=== PATIENT | female | born 1930 | race Caucasian/White ===

== ENCOUNTER → 2016-05-21 | Outpatient (CLI) | payer MEDICARE, OTHER ==
[~2016-05-21] MED LIST: CENTRUM SILVER1 EAC4 PO; DONEPEZIL HCL5 MG PO; HYDROMORPHONE HC4 MG PO; LORTAB 10-3251 EACH PO; MIRALAX255 GM PO; TRAMADOL HCL50 MG PO; TYLENOL EXTRA500 MG PO
== END | disposition home or self-care (01) ==
LOC: CDC 08:26
DX: I45.9 Conduction disorder, unspecified (principal); K46.9 Unspecified abdominal hernia without obstruction or gangrene
CPT/HCPCS: 93000

== ENCOUNTER 2016-05-28 10:43 | Day surgery (SDC) | payer OTHER ==
[~2016-05-28] VITALS: Ht 170.2 cm; Wt 62.6 kg
[2016-05-28 11:31] VITALS: BP 176/75
[2016-05-28 17:30] VITALS: BP 164/72
[2016-05-28 19:30] VITALS: BP 151/66
[2016-05-28 23:25] VITALS: BP 144/65
[2016-05-29 04:36] VITALS: BP 168/68
[2016-05-29 08:15] VITALS: BP 157/69
[2016-05-29 12:45] VITALS: BP 156/70
[2016-05-29 14:30] VITALS: BP 130/60
== END 2016-05-29 16:50 | disposition home or self-care (01) ==
LOC: SDC 10:43 → 2EASTP 14:45 → 2SOUTH 14:45 → 2EASTP 17:05
PROC: 0YQ50ZZ Repair Right Inguinal Region, Open Approach (ICD-10-PCS; principal; 2016-05-28)
DX: K40.90 Unilateral inguinal hernia, without obstruction or gangrene, not specified as recurrent (principal); D17.79 Benign lipomatous neoplasm of other sites; M35.00 Sjogren syndrome, unspecified; F01.50 Vascular dementia, unspecified severity, without behavioral disturbance, psychotic disturbance, mood disturbance, and anxiety; R01.1 Cardiac murmur, unspecified
CPT/HCPCS: 71010; 88302; 93005; C1781; G0378; G8987 GO CJ; G8988 CI; G8989 GO CI; J0690; J1170; J1650; J2405; J3010; J3480; J7120

== ENCOUNTER 2016-08-15 20:20 | Inpatient (IN) | payer OTHER ==
[~2016-08-15] VITALS: Ht 170.2 cm; Wt 61.0 kg
[2016-08-15 21:03] LABS: EOSINOPHIL (%) 0.1 % (0-5); HEMATOCRIT 29.4 % (36.0-46.0); IMMATURE GRANULOCYTE (%) 0.6 % (0.0-0.7); IMMATURE GRANULOCYTE COUNT 0.1 K/uL; INSTRUMENT ABS NEUTROPHIL CT 9.1 K/uL; LYMPHOCYTE COUNT 1.8 K/uL (1.0-2.8); MCH 29.7 PG (29.0-34.0); MCV 89.9 FL (83-99); MEAN PLAT.VOLUME 9.5 uM^3 (9.5-12.4); MONOCYTE (%) 8.6 % (3-12); NEUTROPHIL (%) 75.5 % (45-76); NEUTROPHIL COUNT 9.1 K/uL (1.8-6.4); PLATELET COUNT 498 K/uL (156-360); RBC DIS.WIDTH-CV 14.1 % (11.8-14.6); RBC DIS.WIDTH-SD 46.4 % (39-53); RED BLOOD COUNT 3.27 M/uL (3.80-5.20); WHITE BLOOD COUNT 12.1 K/uL (4.1-10.2)
[2016-08-15 21:16] LABS: CHLORIDE 105 mEq/L (99-109); INTER. NORMALIZED RATIO 1.1; POTASSIUM 4.6 mEq/L (3.7-5.4); PROTHROMBIN TIME 11.3 (9.2-11.2); PTT 31.7 (25-32); SODIUM 141 mEq/L (136-147)
[2016-08-15 21:18] LABS: GLUCOSE 114 mg/dL (70-99)
[2016-08-15 21:19] LABS: ANION GAP 10 MEQ/L (2-14)
[2016-08-15 21:22] LABS: GFR ESTIMATE (CALCULATED) 41 mL/min/
[2016-08-15 21:23] LABS: UREA NITROGEN (BUN) 41 mg/dL (9-23)
[2016-08-15 21:30] LABS: TROP-I INTERPRETATION NEGATIVE; TROPONIN-I 0.02 ng/mL (0.0-0.30)
[2016-08-15 22:06] LABS: ADD MIUA? YES; BILIRUBIN NEGATIVE; BLOOD SMALL; COLOR AMBER ((YELLOW)); GLUCOSE (STRIP) NEGATIVE; KETONES NEGATIVE; LEUKOCYTES TRACE; NITRITE NEGATIVE; PROTEIN (STRIP) NEGATIVE; SPECIFIC GRAVITY 1.016 (1.000-1.030); UROBILINOGEN 0.2 MG/DL (0.2-1.0)
[2016-08-15 22:45] LABS: BACTERIA 3+ /HPF; EPITHELIAL CELLS NONE SEEN /HPF; HYALINE CASTS 0-5 /LPF; MUCUS NONE SEEN /LPF; RED BLOOD CELLS 0-5 /HPF (0-5); UCUL ADDED? NO; WHITE BLOOD CELLS 0-5 /HPF (0-5)
[2016-08-16 03:46] VITALS: BP 167/67
[2016-08-16 05:30] LABS: EOSINOPHIL (%) 0 % (0-5); IMMATURE GRANULOCYTE (%) 0.7 % (0.0-0.7); IMMATURE GRANULOCYTE COUNT 0.1 K/uL; INSTRUMENT ABS NEUTROPHIL CT 10.5 K/uL; LYMPHOCYTE COUNT 0.8 K/uL (1.0-2.8); MCH 29.5 PG (29.0-34.0); MCHC 32.6 G/DL (30.0-36.0); MCV 90.6 FL (83-99); MEAN PLAT.VOLUME 9.4 uM^3 (9.5-12.4); MONOCYTE (%) 8.4 % (3-12); NEUTROPHIL (%) 84.3 % (45-76); NEUTROPHIL COUNT 10.5 K/uL (1.8-6.4); PLATELET COUNT 499 K/uL (156-360); RBC DIS.WIDTH-CV 14.1 % (11.8-14.6); RBC DIS.WIDTH-SD 47.3 % (39-53); RED BLOOD COUNT 3.42 M/uL (3.80-5.20); WHITE BLOOD COUNT 12.4 K/uL (4.1-10.2)
[2016-08-16 05:54] LABS: ANION GAP 9 MEQ/L (2-14); CHLORIDE 104 MEQ/L (99-109); GFR ESTIMATE (CALCULATED) 50 mL/min/; GLUCOSE 110 mg/dL (70-99); POTASSIUM 4.4 MEQ/L (3.7-5.4); SAMPLE HEMOLYSIS CHECK 0; SAMPLE ICTERIC CHECK 0; SAMPLE LIPEMIA CHECK 0; SODIUM 140 MEQ/L (136-147); UREA NITROGEN (BUN) 32 mg/dL (9-23)
[2016-08-16 07:23] VITALS: BP 151/74
[2016-08-16 09:15] LABS: INTERNAL CONTROL VALID? YES
[2016-08-16 10:59] VITALS: BP 173/92
[2016-08-16 15:39] VITALS: BP 155/70
[2016-08-16 19:42] VITALS: BP 186/79
[2016-08-17] VITALS (7 sets, daily range): BP systolic 139–160; BP diastolic 60–75
[2016-08-17 06:24] LABS: HEMATOCRIT 28.3 % (36.0-46.0); MCH 29.2 PG (29.0-34.0); MCHC 32.9 G/DL (30.0-36.0); MEAN PLAT.VOLUME 9.8 uM^3 (9.5-12.4); PLATELET COUNT 519 K/uL (156-360); RBC DIS.WIDTH-CV 13.9 % (11.8-14.6); RBC DIS.WIDTH-SD 45.1 % (39-53); RED BLOOD COUNT 3.18 M/uL (3.80-5.20)
[2016-08-17 06:54] LABS: ANION GAP 12 MEQ/L (2-14); CHLORIDE 105 MEQ/L (99-109); GFR ESTIMATE (CALCULATED) 50 mL/min/; GLUCOSE 85 mg/dL (70-99); POTASSIUM 4.2 MEQ/L (3.7-5.4); SAMPLE HEMOLYSIS CHECK 0; SAMPLE ICTERIC CHECK 0; SAMPLE LIPEMIA CHECK 0; SODIUM 142 MEQ/L (136-147); UREA NITROGEN (BUN) 21 mg/dL (9-23)
[2016-08-18 06:35] LABS: HEMATOCRIT 30.7 % (36.0-46.0); MCH 28.7 PG (29.0-34.0); MCHC 32.6 G/DL (30.0-36.0); MEAN PLAT.VOLUME 9.3 uM^3 (9.5-12.4); PLATELET COUNT 575 K/uL (156-360); RBC DIS.WIDTH-CV 13.8 % (11.8-14.6); RBC DIS.WIDTH-SD 44.7 % (39-53); RED BLOOD COUNT 3.49 M/uL (3.80-5.20); WHITE BLOOD COUNT 12.2 K/uL (4.1-10.2)
[2016-08-18 07:57] VITALS: BP 187/79
[2016-08-18 11:29] VITALS: BP 135/61
[2016-08-18 15:58] VITALS: BP 132/65
[2016-08-18 20:08] VITALS: BP 182/89
[2016-08-18 21:00] VITALS: BP 164/64
[2016-08-18 23:53] VITALS: BP 136/63
[2016-08-19 07:31] VITALS: BP 164/81
[2016-08-19 07:47] LABS: HEMATOCRIT 29.9 % (36.0-46.0); MCH 28.2 PG (29.0-34.0); MCHC 32.1 G/DL (30.0-36.0); MCV 87.7 FL (83-99); MEAN PLAT.VOLUME 9.9 uM^3 (9.5-12.4); PLATELET COUNT 531 K/uL (156-360); RBC DIS.WIDTH-SD 45.1 % (39-53); RED BLOOD COUNT 3.41 M/uL (3.80-5.20)
[2016-08-19 07:48] LABS: WHITE BLOOD COUNT 8.5 K/uL (4.1-10.2)
[2016-08-19 11:12] VITALS: BP 162/83
[2016-08-19 15:49] VITALS: BP 161/77
[2016-08-19 19:55] VITALS: BP 155/68
[2016-08-20 00:02] VITALS: BP 174/72
[2016-08-20 07:57] VITALS: BP 190/77
[2016-08-20 08:24] VITALS: BP 174/74
[2016-08-20 11:47] VITALS: BP 142/65
[2016-08-20 15:43] VITALS: BP 159/64
[2016-08-20 20:00] VITALS: BP 140/62
[2016-08-21] VITALS: BP 149/72
[2016-08-21 07:58] VITALS: BP 194/79
[2016-08-21 08:05] VITALS: BP 155/88
[2016-08-21 08:41] LABS: BASOPHIL COUNT 0.1 K/uL (0-0.1); EOSINOPHIL (%) 0.1 % (0-5); HEMATOCRIT 31.2 % (36.0-46.0); IMMATURE GRANULOCYTE (%) 0.5 % (0.0-0.7); INSTRUMENT ABS NEUTROPHIL CT 5.9 K/uL; LYMPHOCYTE COUNT 1.6 K/uL (1.0-2.8); MCH 28.3 PG (29.0-34.0); MCHC 32.1 G/DL (30.0-36.0); MCV 88.4 FL (83-99); MEAN PLAT.VOLUME 9.7 uM^3 (9.5-12.4); MONOCYTE (%) 9.8 % (3-12); MONOCYTE COUNT 0.8 K/uL (0-0.8); NEUTROPHIL (%) 70.1 % (45-76); NEUTROPHIL COUNT 5.9 K/uL (1.8-6.4); PLATELET COUNT 495 K/uL (156-360); RBC DIS.WIDTH-CV 14.3 % (11.8-14.6); RBC DIS.WIDTH-SD 45.8 % (39-53); RED BLOOD COUNT 3.53 M/uL (3.80-5.20); WHITE BLOOD COUNT 8.4 K/uL (4.1-10.2)
[2016-08-21 09:11] LABS: ANION GAP 10 MEQ/L (2-14); CHLORIDE 106 MEQ/L (99-109); GFR ESTIMATE (CALCULATED) > 59 mL/min/; GLUCOSE 84 mg/dL (70-99); POTASSIUM 4.2 MEQ/L (3.7-5.4); SAMPLE HEMOLYSIS CHECK 0; SAMPLE ICTERIC CHECK 0; SAMPLE LIPEMIA CHECK 0; SODIUM 142 MEQ/L (136-147); UREA NITROGEN (BUN) 15 mg/dL (9-23)
[2016-08-21 10:57] VITALS: BP 175/79
[2016-08-21 15:54] VITALS: BP 144/68
[2016-08-21] MEDS ORDERED: ALBUTEROL2.5 MG/0.5 AEROSOL (16:27)
[2016-08-21] MEDS ORDERED: LOPRESSOR25 MG PO (16:27)
[2016-08-21] MEDS ORDERED: AMLODIPINE BESYL5 MG PO (16:27)
[2016-08-21] MEDS ORDERED: AMOX TR-K CLV1 EAC4 PO (16:27)
[2016-08-21] MEDS ORDERED: GABAPENTIN100 MG PO (16:28)
[2016-08-21] MEDS ORDERED: ENDOCET 5-3251 EACH PO (16:29)
[2016-08-21] MEDS ORDERED: GUAIFENESI100 MG/5 M PO (16:29)
== END 2016-08-21 21:20 | DRG 917 ==
LOC: EME → EDBD 20:20 → EME 20:20 → EDOF 08-16 02:01 → 5SOUTH 08-16 02:01
PROVIDERS: Emergency Medicine; Hospitalist; Internal Medicine
DX: T40.601A Poisoning by unspecified narcotics, accidental (unintentional), initial encounter (principal); G93.41 Metabolic encephalopathy; G30.9 Alzheimer's disease, unspecified; F02.80 Dementia in other diseases classified elsewhere, unspecified severity, without behavioral disturbance, psychotic disturbance, mood disturbance, and anxiety; M79.604 Pain in right leg; I47.1 Supraventricular tachycardia; J18.9 Pneumonia, unspecified organism; I48.91 Unspecified atrial fibrillation; R68.2 Dry mouth, unspecified; G62.9 Polyneuropathy, unspecified; K59.00 Constipation, unspecified; I12.9 Hypertensive chronic kidney disease with stage 1 through stage 4 chronic kidney disease, or unspecified chronic kidney disease; Y92.009 Unspecified place in unspecified non-institutional (private) residence as the place of occurrence of the external cause; N18.3 Chronic kidney disease, stage 3 (moderate); Z88.8 Allergy status to other drugs, medicaments and biological substances; Z88.2 Allergy status to sulfonamides; Z98.890 Other specified postprocedural states
CPT/HCPCS: 70450; 71010; 80048; 81003; 82607; 83605; 83655; 83735; 84443; 84484; 85025; 85027; 85610; 85730; 87040; 87070; 87205; 87449; 93005; 93306; 93970; 95819; 96125 GN; 97530 GP; 97532 GN; 99202; 99281; 99285; J0456; J1630; J1644; J1956; J2543; J7030; J7050

== ENCOUNTER 2016-11-06 04:33 | Emergency (ER) | payer OTHER ==
[~2016-11-06] VITALS: Ht 167.6 cm; Wt 61.7 kg
[~2016-11-06 04:33] MED LIST changes: +ALBUTEROL2.5 MG/0.5 AEROSOL; +AMLODIPINE BESYL5 MG PO; +AMOX TR-K CLV1 EAC4 PO; +ENDOCET 5-3251 EACH PO; +GABAPENTIN100 MG PO; +GUAIFENESI100 MG/5 M PO; +LOPRESSOR25 MG PO
[2016-11-06 05:35] VITALS: BP 178/85
== END 2016-11-06 05:36 | disposition home or self-care (01) ==
LOC: EME → EDBD 04:33 → EME 04:33
PROC: 0HQ0XZZ Repair Scalp Skin, External Approach (ICD-10-PCS; principal; 2016-11-06)
DX: S01.01XA Laceration without foreign body of scalp, initial encounter (principal); W01.10XA Fall on same level from slipping, tripping and stumbling with subsequent striking against unspecified object, initial encounter
CPT/HCPCS: 70450; 99281; 99284

== ENCOUNTER 2016-11-24 12:07 | Inpatient (IN) | payer OTHER ==
[~2016-11-24] VITALS: Ht 170.2 cm; Wt 58.0 kg
[2016-11-24 13:43] LABS: HEMATOCRIT 39.8 % (36.0-46.0); MCH 29.9 PG (29.0-34.0); MCHC 32.4 G/DL (30.0-36.0); MCV 92.1 FL (83-99); MEAN PLAT.VOLUME 9.7 uM^3 (9.5-12.4); PLATELET COUNT 319 K/uL (156-360); RBC DIS.WIDTH-SD 50.3 % (39-53); RED BLOOD COUNT 4.32 M/uL (3.80-5.20); WHITE BLOOD COUNT 10.7 K/uL (4.1-10.2)
[2016-11-24 13:46] LABS: PROTHROMBIN TIME 11.3 SEC (10.2-12.9)
[2016-11-24 13:49] LABS: CHLORIDE 102 mEq/L (99-109); POTASSIUM 4.7 mEq/L (3.7-5.4); SODIUM 139 mEq/L (136-147)
[2016-11-24 13:51] LABS: GLUCOSE 115 mg/dL (70-99)
[2016-11-24 13:52] LABS: ANION GAP 10 MEQ/L (2-14)
[2016-11-24 13:55] LABS: GFR ESTIMATE (CALCULATED) 50 mL/min/
[2016-11-24 13:56] LABS: UREA NITROGEN (BUN) 29 mg/dL (9-23)
[2016-11-24] MEDS ORDERED: BUSPAR5 MG PO (16:17)
[2016-11-24] MEDS ORDERED: FEOSOL325 MG PO (16:18)
[2016-11-24] MEDS ORDERED: NEURONTIN100 MG PO (16:19)
[2016-11-24] MEDS ORDERED: ENDOCET 5-3251 EACH PO (16:20)
[2016-11-24] MEDS ORDERED: ZOLOFT50 MG PO (16:21)
[2016-11-24] MEDS ORDERED: MIRALAX17 GM PO (16:21)
[2016-11-24] MEDS ORDERED: MYRBETRIQ25 MG PO (16:22)
[2016-11-24] MEDS ORDERED: TYLENOL REGULA325 MG PO (16:24)
[2016-11-24] MEDS ORDERED: MILK OF MAGN PO (16:25)
[2016-11-24] MEDS ORDERED: ROBAFEN CF SYR118 M1 PO (16:26)
[2016-11-24 17:48] LABS: ADD MIUA? NO; BILIRUBIN NEGATIVE; BLOOD NEGATIVE; COLOR YELLOW ((YELLOW)); GLUCOSE (STRIP) NEGATIVE; KETONES NEGATIVE; LEUKOCYTES NEGATIVE; NITRITE NEGATIVE; PROTEIN (STRIP) NEGATIVE; SPECIFIC GRAVITY 1.017 (1.000-1.030); UCUL ADDED? NO; UROBILINOGEN 0.2 MG/DL (0.2-1.0)
[2016-11-24 18:25] VITALS: BP 191/83
[2016-11-24 19:23] VITALS: BP 162/72
[2016-11-24 23:29] VITALS: BP 169/79
[2016-11-24 23:41] VITALS: BP 169/75
[2016-11-25 02:58] VITALS: BP 180/74
[2016-11-25 06:47] LABS: EOSINOPHIL (%) 3.8 % (0-5); EOSINOPHIL COUNT 0.3 K/uL (0-0.3); HEMATOCRIT 37.4 % (36.0-46.0); IMMATURE GRANULOCYTE (%) 0.4 % (0.0-0.7); INSTRUMENT ABS NEUTROPHIL CT 5.9 K/uL; LYMPHOCYTE COUNT 1.2 K/uL (1.0-2.8); MCH 29.7 PG (29.0-34.0); MCHC 32.4 G/DL (30.0-36.0); MCV 91.7 FL (83-99); MEAN PLAT.VOLUME 9.6 uM^3 (9.5-12.4); MONOCYTE (%) 11.8 % (3-12); NEUTROPHIL (%) 69.6 % (45-76); NEUTROPHIL COUNT 5.9 K/uL (1.8-6.4); PLATELET COUNT 292 K/uL (156-360); RBC DIS.WIDTH-CV 14.7 % (11.8-14.6); RED BLOOD COUNT 4.08 M/uL (3.80-5.20); WHITE BLOOD COUNT 8.4 K/uL (4.1-10.2)
[2016-11-25 07:11] LABS: ALKALINE PHOSPHATASE 68 IU/L (3-129); ANION GAP 6 MEQ/L (2-14); CHLORIDE 100 MEQ/L (99-109); GFR ESTIMATE (CALCULATED) > 59 mL/min/; GLUCOSE 119 mg/dL (70-99); POTASSIUM 4.4 MEQ/L (3.7-5.4); SAMPLE HEMOLYSIS CHECK 0; SAMPLE ICTERIC CHECK 0; SAMPLE LIPEMIA CHECK 0; SODIUM 137 MEQ/L (136-147); TOTAL BILIRUBIN 0.5 MG/DL (0.0-1.0); UREA NITROGEN (BUN) 18 mg/dL (9-23)
[2016-11-25 07:28] VITALS: BP 145/65
[2016-11-25 15:30] VITALS: BP 159/73
[2016-11-26 00:13] VITALS: BP 174/74
[2016-11-26 07:03] LABS: HEMATOCRIT 38.2 % (36.0-46.0); MCH 30.3 PG (29.0-34.0); MCHC 33.2 G/DL (30.0-36.0); MCV 91.2 FL (83-99); PLATELET COUNT 279 K/uL (156-360); RBC DIS.WIDTH-CV 14.6 % (11.8-14.6); RBC DIS.WIDTH-SD 47.9 % (39-53); RED BLOOD COUNT 4.19 M/uL (3.80-5.20); WHITE BLOOD COUNT 9.1 K/uL (4.1-10.2)
[2016-11-26 07:27] VITALS: BP 171/74
[2016-11-26 07:41] LABS: ALKALINE PHOSPHATASE 70 IU/L (3-129); ANION GAP 6 MEQ/L (2-14); CHLORIDE 99 MEQ/L (99-109); GFR ESTIMATE (CALCULATED) > 59 mL/min/; GLUCOSE 125 mg/dL (70-99); POTASSIUM 4.5 MEQ/L (3.7-5.4); SAMPLE HEMOLYSIS CHECK 0; SAMPLE ICTERIC CHECK 0; SAMPLE LIPEMIA CHECK 0; SODIUM 136 MEQ/L (136-147); UREA NITROGEN (BUN) 13 mg/dL (9-23)
[2016-11-26 07:42] LABS: TOTAL BILIRUBIN 0.7 MG/DL (0.0-1.0)
[2016-11-26 11:20] VITALS: BP 153/68
[2016-11-26 19:33] VITALS: BP 114/57
[2016-11-26 23:14] VITALS: BP 148/67
[2016-11-27 03:51] VITALS: BP 158/68
[2016-11-27 07:28] LABS: MCH 29.8 PG (29.0-34.0); MCHC 32.4 G/DL (30.0-36.0); MCV 91.9 FL (83-99); MEAN PLAT.VOLUME 9.9 uM^3 (9.5-12.4); PLATELET COUNT 278 K/uL (156-360); RBC DIS.WIDTH-CV 14.3 % (11.8-14.6); RBC DIS.WIDTH-SD 47.4 % (39-53); RED BLOOD COUNT 3.59 M/uL (3.80-5.20); WHITE BLOOD COUNT 8.8 K/uL (4.1-10.2)
[2016-11-27 07:50] LABS: ALKALINE PHOSPHATASE 52 IU/L (3-129); ANION GAP 9 MEQ/L (2-14); CHLORIDE 102 MEQ/L (99-109); GFR ESTIMATE (CALCULATED) > 59 mL/min/; GLUCOSE 111 mg/dL (70-99); POTASSIUM 4.3 MEQ/L (3.7-5.4); SAMPLE HEMOLYSIS CHECK 0; SAMPLE ICTERIC CHECK 0; SAMPLE LIPEMIA CHECK 0; SODIUM 137 MEQ/L (136-147); TOTAL BILIRUBIN 0.4 MG/DL (0.0-1.0); UREA NITROGEN (BUN) 18 mg/dL (9-23)
[2016-11-27 08:04] VITALS: BP 121/59
[2016-11-27 16:07] VITALS: BP 89/52
[2016-11-27 19:51] VITALS: BP 105/53
[2016-11-27 23:57] VITALS: BP 118/57
[2016-11-28] VITALS (8 sets, daily range): BP systolic 131–172; BP diastolic 59–83
[2016-11-28 06:49] LABS: HEMATOCRIT 27.5 % (36.0-46.0); MCV 93.2 FL (83-99)
[2016-11-28 19:05] LABS: ADD MIUA? YES; BILIRUBIN NEGATIVE; BLOOD SMALL; COLOR STRAW ((YELLOW)); GLUCOSE (STRIP) NEGATIVE; KETONES NEGATIVE; LEUKOCYTES NEGATIVE; NITRITE NEGATIVE; PROTEIN (STRIP) NEGATIVE; UROBILINOGEN 0.2 MG/DL (0.2-1.0)
[2016-11-28 19:13] LABS: BACTERIA RARE /HPF; EPITHELIAL CELLS RARE /HPF; MUCUS TRACE /LPF; RED BLOOD CELLS 0-5 /HPF (0-5); UCUL ADDED? NO; WHITE BLOOD CELLS 0-5 /HPF (0-5)
[2016-11-28 21:02] LABS: HEMATOCRIT 32.9 % (36.0-46.0); MCHC 32.5 G/DL (30.0-36.0); MCV 92.2 FL (83-99); MEAN PLAT.VOLUME 9.5 uM^3 (9.5-12.4); PLATELET COUNT 294 K/uL (156-360); RBC DIS.WIDTH-SD 46.2 % (39-53); RED BLOOD COUNT 3.57 M/uL (3.80-5.20); WHITE BLOOD COUNT 8.5 K/uL (4.1-10.2)
[2016-11-29 00:13] VITALS: BP 149/110
[2016-11-29 04:07] VITALS: BP 173/73
[2016-11-29 12:07] VITALS: BP 161/70
[2016-11-29] MEDS ORDERED: VITAMIN D2000 UNI1 PO (16:07)
[2016-11-29] MEDS ORDERED: LOVENOX40 MG/0.4 SC (16:07)
[2016-11-29] MEDS ORDERED: THERAGRAN1 TABLET PO (16:07)
[2016-11-29] MEDS ORDERED: LOPRESSOR25 MG PO (16:07)
[2016-11-29] MEDS ORDERED: AMLODIPINE BESYL5 MG PO (16:07)
[2016-11-29 16:23] VITALS: BP 139/75
[2016-11-29 23:25] VITALS: BP 188/84
[2016-11-30 08:21] VITALS: BP 167/72
[2016-11-30] MEDS ORDERED: PERCOCET 5/31 TABLET PO (12:16)
== END 2016-11-30 14:54 | DRG 470 ==
LOC: EME 12:07 → 3EAST 16:30 → EDOF 16:30 → ENRESERV 16:46 → 3EAST 18:03
PROVIDERS: Emergency Medicine; Family Medicine; Internal Medicine; Orthopaedic Surgery
PROC: 0SRR0J9 Replacement of Right Hip Joint, Femoral Surface with Synthetic Substitute, Cemented, Open Approach (ICD-10-PCS; principal; 2016-11-26)
PROC: 30233N1 Transfusion of Nonautologous Red Blood Cells into Peripheral Vein, Percutaneous Approach (ICD-10-PCS; 2016-11-28)
DX: S72.001A Fracture of unspecified part of neck of right femur, initial encounter for closed fracture (principal); W01.0XXA Fall on same level from slipping, tripping and stumbling without subsequent striking against object, initial encounter; D62 Acute posthemorrhagic anemia; I12.9 Hypertensive chronic kidney disease with stage 1 through stage 4 chronic kidney disease, or unspecified chronic kidney disease; N18.3 Chronic kidney disease, stage 3 (moderate); G62.9 Polyneuropathy, unspecified; F01.50 Vascular dementia, unspecified severity, without behavioral disturbance, psychotic disturbance, mood disturbance, and anxiety; G30.9 Alzheimer's disease, unspecified; F02.80 Dementia in other diseases classified elsewhere, unspecified severity, without behavioral disturbance, psychotic disturbance, mood disturbance, and anxiety; F41.9 Anxiety disorder, unspecified; F32.9 Major depressive disorder, single episode, unspecified; R29.6 Repeated falls; Z51.5 Encounter for palliative care; Z66 Do not resuscitate; Y92.092 Bedroom in other non-institutional residence as the place of occurrence of the external cause; Z91.81 History of falling; Z75.1 Person awaiting admission to adequate facility elsewhere
CPT/HCPCS: 71010; 73502; 80048; 80053; 81003; 85014; 85018; 85025; 85027; 85610; 85730; 86850; 86900; 86901; 86920; 87086; 93005; 94799; 97530 GP; 99202; 99281; 99285; C1713; J0131; J0690; J0696; J1100; J1650; J2270; J2405; J3010; J7030; J7050; J7120; P9016; S0020

== ENCOUNTER 2017-06-01 14:38 | Emergency (ER) | payer OTHER ==
[~2017-06-01] VITALS: Ht 175.3 cm; Wt 61.0 kg
[~2017-06-01 14:38] MED LIST changes: +BUSPAR5 MG PO; +FEOSOL325 MG PO; +LOVENOX40 MG/0.4 SC; +MILK OF MAGN PO; +MIRALAX17 GM PO; +MYRBETRIQ25 MG PO; +NEURONTIN100 MG PO; +PERCOCET 5/31 TABLET PO; +ROBAFEN CF SYR118 M1 PO; +THERAGRAN1 TABLET PO; +TYLENOL REGULA325 MG PO; +VITAMIN D2000 UNI1 PO; +ZOLOFT50 MG PO
[2017-06-01 16:38] VITALS: BP 182/82
== END 2017-06-01 16:43 ==
LOC: EME 14:38
DX: F03.90 Unspecified dementia, unspecified severity, without behavioral disturbance, psychotic disturbance, mood disturbance, and anxiety (principal)
CPT/HCPCS: 99281; 99284